=== PATIENT | male | born 1955 | race African-American/Black ===

== ENCOUNTER → 2021-03-30 | Emergency (ER) | payer OTHER ==
[~2021-03-30] VITALS: Ht 170.2 cm; Wt 97.5 kg
[~2021-03-30] MED LIST: AMLODIPINE-OLM1 EAC3; SIMVASTATIN5 MG; ZESTRIL30 MG
== END | disposition home or self-care (01) ==
LOC: ER 16:29
DX: R31.0 Gross hematuria (principal)